=== PATIENT | female | born 1980 | race Caucasian/White ===

== ENCOUNTER 2016-11-05 23:44 | Emergency (ER) | payer OTHER, MEDICAID ==
[~2016-11-05] VITALS: Ht 160 cm; Wt 112.7 kg
[2016-11-05 23:52] VITALS: Ht 160 cm; Wt 112.7 kg
[2016-11-06] MEDS ORDERED: SOD CHLORIDE 0.9% 500 ML IV STA (00:07)
[2016-11-06] MEDS ORDERED: ALBUTEROL 0.083% (NEB) 2.5 MG/3 ML AMP NEB STA (00:16)
[2016-11-06] MEDS ORDERED: IPRATROPIUM (NEB) 0.5 MG/2.5 ML AMP NEB STA (00:16)
[2016-11-06 00:27] LABS: BASOPHIL # 0.1 10^3/ul (0.0-0.1); BASOPHILS % 0.5 % (0.0-2.0); EOSINOPHILS # 0.2 10^3/ul (0.0-0.5); EOSINOPHILS % 1.6 % (0.0-7.0); HEMATOCRIT 35.6 % (37.0-47.0); HEMOGLOBIN 12.6 g/dl (12.0-16.0); LYMPHOCYTES % 17.7 % (15.0-51.0); MEAN CORPUSCULAR HEMOGLOBIN 31.7 pg (29.0-33.0); MEAN CORPUSCULAR HGB CONC 35.4 g/dl (32.0-37.0); MEAN CORPUSCULAR VOLUME 89.4 fl (82.0-101.0); MEAN PLATELET VOLUME 9.2 fl (7.4-10.4); MONOCYTE # 0.7 10^3/ul (0.3-0.9); MONOCYTES % 6.3 % (0.0-11.0); NEUTROPHILS % 72.1 % (39.0-77.0); PLATELET COUNT 285 10^3/UL (140-415); RED BLOOD COUNT 3.98 10^6/ul (4.20-5.40); RED CELL DISTRIBUTION WIDTH 13.4 % (11.5-14.5); WHITE BLOOD COUNT 11.1 10^3/ul (4.8-10.8)
[2016-11-06] MEDS ORDERED: LORAZEPAM 2 MG INJ IV ONE (00:30)
[2016-11-06 00:51] LABS: ALANINE AMINOTRANSFERASE 40 IU/L (13-69); ALBUMIN 3.9 g/dl (3.3-4.9); ALKALINE PHOSPHATASE 74 IU/L (42-121); ANION GAP 18 (8-16); ASPARTATE AMINO TRANSFERASE 23 IU/L (15-46); BILIRUBIN,INDIRECT 0.2 mg/dl (0-1.1); BILIRUBIN,TOTAL 0.2 mg/dl (0.2-1.3); BLOOD UREA NITROGEN 8 mg/dl (7-20); CALCIUM 10.2 mg/dl (8.4-10.2); CARBON DIOXIDE 23 mmol/L (21-31); CHLORIDE 103 mmol/L (97-110); CREATININE 0.59 mg/dl (0.44-1.00); GLUCOSE 92 mg/dl (70-220); POTASSIUM 3.7 mmol/L (3.5-5.1); SODIUM 140 mmol/L (135-144); TOTAL PROTEIN 6.9 g/dl (6.1-8.1)
[2016-11-06 00:53] LABS: INR 0.91; PROTIME 12.2 Sec (12.2-14.2)
[2016-11-06 00:54] LABS: PARTIAL THROMBOPLASTIN TIME 25.8 Sec (25.0-35.0)
[2016-11-06 01:04] LABS: B-TYPE NATRIURETIC PEPTIDE < 11 PG/ML (0-125); TROPONIN-I < 0.012 ng/ml (0.00-0.12)
[2016-11-06 01:35] LABS: ADD UMIC YES; UR ASCORBIC ACID NEGATIVE (NEGATIVE); UR BACTERIA FEW /HPF (NONE SEEN); UR BILIRUBIN (Dip) NEGATIVE (NEGATIVE); UR BLOOD (Dip) 1+ mg/dL (NEGATIVE); UR CLARITY CLEAR (CLEAR); UR COLOR STRAW (YELLOW); UR GLUCOSE (Dip) NEGATIVE (NEGATIVE); UR KETONES (Dip) NEGATIVE (NEGATIVE); UR LEUKOCYTE ESTERASE (Dip) TRACE Leu/ul (NEGATIVE); UR NITRITE (Dip) NEGATIVE (NEGATIVE); UR RBC 1 /HPF (0-5); UR SPECIFIC GRAVITY (Dip) 1.001 (1.003-1.030); UR SQUAMOUS EPITHELIAL CELL FEW /HPF (FEW); UR TOTAL PROTEIN (Dip) NEGATIVE (NEGATIVE); UR UROBILINOGEN (Dip) NEGATIVE (NEGATIVE)
[2016-11-06] MEDS ORDERED: PREN1TAB12 PO (02:20)
[2016-11-06] MEDS ORDERED: LABE200T25 PO (02:20)
[2016-11-06] MEDS ORDERED: CALC-516 PO (02:20)
[2016-11-06] MEDS ORDERED: FER325 PO (02:20)
[2016-11-06] MEDS ORDERED: ALBU18HF INHALATION (02:40)
--- NOTE | 2016-11-06 02:40 | ERD ---
ER Documentation Chief Complaint Date/Time DATE: 11/06/16 TIME: 02:39 Chief Complaint LFT SD CP RADIATING TO LT SHOULDER TONIGHT. 28 WEEKS +SOB HPI 28-year-old female here with left-sided chest pain rating to her shoulders 9. She also complains of shortness breath for the past 3 days. Mild cough. No fevers no chills. No nausea no vomiting. No other current complaints. No abdominal pain. No vaginal bleeding. ROS All systems reviewed and are negative except as per history of present illness. Medications Home Meds Reported Medications Vit No.126/Iron/FA (Classic Tablet) 1 Each Tablet, 1 EACH PO, TAB 11/06/16 Labetalol Hcl* (Labetalol Hcl*) 200 Mg Tablet, 200 MG PO BID, TAB 11/06/16 Ferrous Sulfate* (Ferrous Sulfate*) 325 Mg Tabec, 325 MG PO TID, TAB 11/06/16 Calcium Carbonate/Vitamin D3 (OYSTER SHELL CALCIUM TABLET) 1 Each Tablet, 1 EACH PO, TAB 11/06/16 Allergies Allergies: Coded Allergies: No Known Allergy (Unverified , 11/05/16) PMhx/Soc Medical and Surgical Hx: pt denies Surgical Hx Hx Cardiac Disorders: Yes (HTN) Hx Alcohol Use: No Hx Substance Use: No Hx Tobacco Use: No Smoking Status: Never smoker Physical Exam Vitals Vital Signs Date Time Temp Pulse Resp B/P Pulse Ox O2 Delivery O2 Flow Rate FiO2 11/06/16 00:54 2 11/06/16 00:40 80 12 99 21 11/05/16 23:52 97.8 86 22 146/83 100 Physical Exam Const: [] Head: Atraumatic Eyes: Normal Conjunctiva ENT: Normal External Ears, Nose and Mouth. Neck: Full range of motion..~ No meningismus. Resp: Scattered wheezing. Good air entry Cardio: Regular rate and rhythm, no murmurs Abd: Soft, non tender, non distended. Normal bowel sounds Skin: No petechiae or rashes Back: No midline or flank tenderness Ext: No cyanosis, or edema Neur: Awake and alert Psych: Normal Mood and Affect Result Diagram: 11/06/16 0010 11/06/16 0010 Results 24 hrs Laboratory Tests Test 11/06/16 00:10 11/06/16 00:15 White Blood Count 11.110^3/ul Red Blood Count 3.9810^6/ul Hemoglobin 12.6g/dl Hematocrit 35.6% Mean Corpuscular Volume 89.4fl Mean Corpuscular Hemoglobin 31.7pg Mean Corpuscular Hemoglobin Concent 35.4g/dl Red Cell Distribution Width 13.4% Platelet Count 56331^3/UL Mean Platelet Volume 9.2fl Neutrophils % 72.1% Lymphocytes % 17.7% Monocytes % 6.3% Eosinophils % 1.6% Basophils % 0.5% Nucleated Red Blood Cells % 0.0/100WBC Neutrophils # (Manual) 810^3/ul Lymphocytes # 2.010^3/ul Monocytes # 0.710^3/ul Eosinophils # 0.210^3/ul Basophils # 0.110^3/ul Nucleated Red Blood Cells # 0.010^3/ul Prothrombin Time 12.2Sec Prothrombin Time Ratio 1.0 INR International Normalized Ratio 0.91 Activated Partial Thromboplast Time 25.8Sec Sodium Level 140mmol/L Potassium Level 3.7mmol/L Chloride Level 103mmol/L Carbon Dioxide Level 23mmol/L Anion Gap 18 Blood Urea Nitrogen 8mg/dl Creatinine 0.59mg/dl Glucose Level 92mg/dl Calcium Level 10.2mg/dl Total Bilirubin 0.2mg/dl Direct Bilirubin 0.00mg/dl Indirect Bilirubin 0.2mg/dl Aspartate Amino Transf (AST/SGOT) 23IU/L Alanine Aminotransferase (ALT/SGPT) 40IU/L Alkaline Phosphatase 74IU/L Troponin I < 0.012ng/ml B-Type Natriuretic Peptide < 11PG/ML Total Protein 6.9g/dl Albumin 3.9g/dl Globulin 3.00g/dl Albumin/Globulin Ratio 1.30 Urine Color STRAW Urine Clarity CLEAR Urine pH 7.0 Urine Specific [place] 1.001 Urine Ketones NEGATIVEmg/dL Urine Nitrite NEGATIVEmg/dL Urine Bilirubin NEGATIVEmg/dL Urine Urobilinogen NEGATIVEmg/dL Urine Leukocyte Esterase TRACELeu/ul Urine Microscopic RBC 1/HPF Urine Microscopic WBC 0/HPF Urine Squamous Epithelial Cells FEW/HPF Urine Bacteria FEW/HPF Urine Hemoglobin 1+mg/dL Urine Glucose NEGATIVEmg/dL Urine Total Protein NEGATIVEmg/dl Current Medications Medications (Trade) Dose Ordered Sig/Gera Route PRN Reason Start Time Stop Time Status Last Admin Dose Admin Sodium Chloride (NS) 500 ml @ 500 mls/hr Q1H STAT IV 11/06/16 00:07 11/06/16 01:06 DC 11/06/16 00:27 Lorazepam (Ativan) 1 mg ONCE ONCE IV 11/06/16 00:30 11/06/16 00:30 DC Albuterol (Proventil 0.083% (Neb)) 5 mg ONCE STAT NEB 11/06/16 00:16 11/06/16 00:17 DC 11/06/16 00:38 Ipratropium [place] (Atrovent 0.02% (Neb)) 0.5 mg ONCE STAT NEB 11/06/16 00:16 11/06/16 00:17 DC 11/06/16 00:38 Procedures/MDM EKG: Rate/Rhythm: [Normal Sinus Rhythm] QRS, ST, T-waves: [No changes consistent w/ acute ischemia] Impression: [No evidence of ischemia or arrhythmia] Patient's respiratory status has stabilized while in the department and is appropriate for outpatient work up. Exam and work up not consistent w/ impending respiratory failure or cardiovascular collapse. Departure Diagnosis: Primary Impression: Asthma Asthma severity: unspecified severity Asthma complication type: uncomplicated Qualified Code: J45.909 - Uncomplicated asthma, unspecified asthma severity Condition: Stable REYMUNDO CHANDRA Nov 06, 2016 02:40
[2016-11-06 02:57] VITALS: BP 120/68; PULSE 82; RESP 16
== END 2016-11-06 02:58 | disposition home or self-care (01) ==
LOC: E/R 23:44
DX: O99.513 Diseases of the respiratory system complicating pregnancy, third trimester (principal); J45.901 Unspecified asthma with (acute) exacerbation; R06.02 Shortness of breath; R40.2142 Coma scale, eyes open, spontaneous, at arrival to emergency department; R40.2252 Coma scale, best verbal response, oriented, at arrival to emergency department; R40.2362 Coma scale, best motor response, obeys commands, at arrival to emergency department; O10.013 Pre-existing essential hypertension complicating pregnancy, third trimester; Z3A.28 28 weeks gestation of pregnancy
CPT/HCPCS: 36415; 80053; 81001; 83880; 84484; 85025; 85610; 85730; 93005; 94664; 99284; J7040

== ENCOUNTER 2016-12-09 16:13 | Emergency (ER) | payer MEDICAID, OTHER ==
[~2016-12-09] VITALS: Ht 160 cm; Wt 112.5 kg
[~2016-12-09 16:13] MED LIST: ALBU18HF INHALATION; CALC-516 PO; FER325 PO; LABE200T25 PO; PREN1TAB12 PO
[2016-12-09 16:15] VITALS: Ht 160 cm; Wt 112.5 kg
[2016-12-09] MEDS ORDERED: FLUT9.9S NASAL (16:47)
[2016-12-09] MEDS ORDERED: LABETALOL 200 MG TAB PO ONE (17:00)
[2016-12-09 17:27] VITALS: BP 136/83; PULSE 91; RESP 17
--- NOTE | 2016-12-09 17:44 | ERD ---
ER Documentation Chief Complaint Date/Time DATE: 12/09/16 TIME: 17:42 Chief Complaint right eye itciness ( allergy) 33 weeks HPI Patient is a 28-year-old female with hypertension who presents with a "allergy" . She says that she cannot breathe through her nose and that her throat hurts and she swallows. She has not seen her OB yet for this issue. She did not go to OB prior to coming to the emergency department. She is 33 weeks . She is taking labetalol and loratadine currently she does have elevated blood pressure but she did not take her labetalol today. She says the loratadine is not helping with this nasal issue. Says that her OB doctor is Dr. Viera. ROS All systems reviewed and are negative except as per history of present illness. Medications Home Meds Active Scripts Fluticasone Propionate (Flonase Allergy Relief) 9.9 Ml [place].susp, 1 SPRAY NASAL BID, #1 BOTTLE TO EACH NOSTRIL Prov:DOMONIQUE COLBY MD 12/09/16 Albuterol Sulfate* (Ventolin HFA*) 18 Gm Hfa.aer.ad, 2 PUFF INHALATION Q4H, #1 INHALER Prov:REYMUNDO CHANDRA 11/06/16 Reported Medications Vit No.126/Iron/FA (Classic Tablet) 1 Each Tablet, 1 EACH PO, TAB 11/06/16 Labetalol Hcl* (Labetalol Hcl*) 200 Mg Tablet, 200 MG PO BID, TAB 11/06/16 Ferrous Sulfate* (Ferrous Sulfate*) 325 Mg Tabec, 325 MG PO TID, TAB 11/06/16 Calcium Carbonate/Vitamin D3 (OYSTER SHELL CALCIUM TABLET) 1 Each Tablet, 1 EACH PO, TAB 11/06/16 Allergies Allergies: Coded Allergies: No Known Allergy (Unverified , 11/05/16) PMhx/Soc Medical and Surgical Hx: pt denies Medical Hx Hx Cardiac Disorders: Yes (HTN) Hx Alcohol Use: No Hx Substance Use: No Hx Tobacco Use: No Smoking Status: Never smoker FmHx Family History: diabetes Physical Exam Vitals Vital Signs Date Time Temp Pulse Resp B/P Pulse Ox O2 Delivery O2 Flow Rate FiO2 12/09/16 17:27 91 17 136/83 98 Room Air 12/09/16 17:16 83 17 147/88 98 Room Air 12/09/16 16:15 98.1 92 18 139/89 98 Physical Exam Const: No acute distress Head: Atraumatic Eyes: Normal Conjunctiva ENT: Normal External Ears, Nose and Mouth. Neck: Full range of motion..~ No meningismus. Resp: Clear to auscultation bilaterally Cardio: Regular rate and rhythm, no murmurs Abd: Soft, abdomen at 33 weeks Skin: No petechiae or rashes Back: No midline or flank tenderness Ext: No cyanosis, or edema Neur: Awake and alert Psych: Normal Mood and Affect Results 24 hrs Current Medications Medications (Trade) Dose Ordered Sig/Gera Route PRN Reason Start Time Stop Time Status Last Admin Dose Admin Labetalol HCl (Normodyne) 200 mg ONCE ONCE PO 12/09/16 17:00 12/09/16 17:01 DC 12/09/16 17:24 Procedures/MDM Patient is a 36-year-old female presents with what appears to be nasal allergies. The patient will likely benefit from Flonase. The patient has elevated blood pressure of 170/110 currently and even though she has hypertension and did not take her labetalol today there is a concern for possible preeclampsia given her 33 weeks . The patient will need to be sent directly to the OB triage area for further evaluation and monitoring. She was given her usual dose of labetalol 200 mg by mouth in the ER and repeat blood pressure was improved. The patient will be discharged in stable condition will be sent directly to OB. Departure Diagnosis: Primary Impression: Hypertension affecting Trimester: third trimester Qualified Code: O16.3 - Hypertension affecting in third trimester Additional Impression: Seasonal allergies Chronicity: acute Allergic rhinitis trigger: unspecified Qualified Code: J30.2 - Acute seasonal allergic rhinitis, unspecified trigger Condition: Fair Patient Instructions: Causes of Nasal Allergies, High Blood Pressure ( Hypertension) Additional Instructions: Go directly to OB Triage for further evaluation. DOMONIQUE COLBY MD Dec 09, 2016 17:44
== END 2016-12-09 17:37 | disposition home or self-care (01) ==
LOC: E/R 16:13
DX: O16.3 Unspecified maternal hypertension, third trimester (principal); J30.2 Other seasonal allergic rhinitis; Z3A.33 33 weeks gestation of pregnancy
CPT/HCPCS: Z7502; Z7610; 99283

== ENCOUNTER 2016-12-09 17:43 | Outpatient (CLI) | payer MEDICAID, OTHER ==
[~2016-12-09 17:43] MED LIST changes: +FLUT9.9S NASAL
[2016-12-09 19:19] LABS: BASOPHILS % 0.3 % (0.0-2.0); EOSINOPHILS # 0.2 10^3/ul (0.0-0.5); EOSINOPHILS % 1.8 % (0.0-7.0); HEMATOCRIT 34.4 % (37.0-47.0); HEMOGLOBIN 12.2 g/dl (12.0-16.0); LYMPHOCYTES # 1.2 10^3/ul (0.8-2.9); LYMPHOCYTES % 12.4 % (15.0-51.0); MEAN CORPUSCULAR HEMOGLOBIN 32.4 pg (29.0-33.0); MEAN CORPUSCULAR HGB CONC 35.5 g/dl (32.0-37.0); MEAN CORPUSCULAR VOLUME 91.5 fl (82.0-101.0); MEAN PLATELET VOLUME 9.4 fl (7.4-10.4); MONOCYTE # 0.7 10^3/ul (0.3-0.9); MONOCYTES % 7.4 % (0.0-11.0); NEUTROPHIL # 7.4 10^3/ul (1.6-7.5); PLATELET COUNT 261 10^3/UL (140-415); RED BLOOD COUNT 3.76 10^6/ul (4.20-5.40); RED CELL DISTRIBUTION WIDTH 13.3 % (11.5-14.5); WHITE BLOOD COUNT 9.6 10^3/ul (4.8-10.8)
[2016-12-09 19:33] LABS: ADD UMIC YES; UR ASCORBIC ACID NEGATIVE (NEGATIVE); UR BACTERIA MODERATE /HPF (NONE SEEN); UR BILIRUBIN (Dip) NEGATIVE (NEGATIVE); UR BLOOD (Dip) NEGATIVE (NEGATIVE); UR CLARITY SLIGHTLY CLOUDY (CLEAR); UR COLOR YELLOW (YELLOW); UR GLUCOSE (Dip) NEGATIVE (NEGATIVE); UR KETONES (Dip) NEGATIVE (NEGATIVE); UR LEUKOCYTE ESTERASE (Dip) 1+ Leu/ul (NEGATIVE); UR MUCUS FEW /HPF (NONE SEEN); UR NITRITE (Dip) NEGATIVE (NEGATIVE); UR RBC 1 /HPF (0-5); UR SPECIFIC GRAVITY (Dip) 1.013 (1.003-1.030); UR SQUAMOUS EPITHELIAL CELL FEW /HPF (FEW); UR TOTAL PROTEIN (Dip) NEGATIVE (NEGATIVE); UR UROBILINOGEN (Dip) NEGATIVE (NEGATIVE)
[2016-12-09 19:36] LABS: INR 0.97; PARTIAL THROMBOPLASTIN TIME 25.8 Sec (25.0-35.0); PROTIME 12.9 Sec (12.2-14.2)
[2016-12-09 19:37] LABS: ALBUMIN 3.5 g/dl (3.3-4.9); ALBUMIN/GLOBULIN RATIO 1.12; BILIRUBIN,INDIRECT 0.3 mg/dl (0-1.1); BILIRUBIN,TOTAL 0.3 mg/dl (0.2-1.3); CALCIUM 9.3 mg/dl (8.4-10.2); CREATININE 0.57 mg/dl (0.44-1.00); POTASSIUM 3.7 mmol/L (3.5-5.1); TOTAL PROTEIN 6.6 g/dl (6.1-8.1)
[2016-12-09 19:44] LABS: FIBRIN SPLIT PRODUCT <10 ug/ml (<10)
--- NOTE | 2016-12-09 19:53 | RADRPT ---
PROCEDURE: Obstetrical ultrasound for biophysical profile CLINICAL INDICATION: Biophysical profile. . TECHNIQUE: Obstetrical ultrasound of the uterus for biophysical profile. Transabdominal views are obtained. COMPARISON: 12/07/2016 FINDINGS: Single intrauterine gestation. Presentation: Cephalic. Placenta: Fundal No evidence of placental abruption. No evidence of placenta previa. breathing movement = 2/2 tone = 2/2 motion = 2/2 CHANDLER = 2/2 CHANDLER = 17 cm heart rate: 135 beats per minute IMPRESSION: Single intrauterine gestation. Biophysical profile 10/23 RPTAT: AADD .Geoffrey Sanchez MD, MD Date Time Electronically viewed and signed by .Geoffrey Sanchez MD, on 12/09/2016 19:53 .B/
--- NOTE | 2016-12-09 22:14 | PN ---
Triage Information Date/Time Dec 09, 2016. Reason for visit: Chronic hypertension. Upper respiratory infection. Weeks of Gestation 33w 1d /Para 2/1 Diabetes: none Hypertention: essential Additional information PMHx: Chronic hypertension. Mild asthma. PSHx: none. All: shrimp. Objective T=98.4 BP 140/80 (after taking her BP meds it was 134/75). Heart Rate: 130's Heart Rate Comments Accels to 180 bpm. No decels. Contractions: None Exam Deferred. Results/Medications Result Diagram: 12/09/16191212/09/161912 Results 24 hrs Laboratory Tests Test 12/09/16 19:13 12/09/16 19:15 White Blood Count 9.6 Red Blood Count 3.76 L Hemoglobin 12.2 Hematocrit 34.4 L Mean Corpuscular Volume 91.5 Mean Corpuscular Hemoglobin 32.4 Mean Corpuscular Hemoglobin Concent 35.5 Red Cell Distribution Width 13.3 Platelet Count 261 Mean Platelet Volume 9.4 Neutrophils % 77.0 Lymphocytes % 12.4 L Monocytes % 7.4 Eosinophils % 1.8 Basophils % 0.3 Nucleated Red Blood Cells % 0.0 Neutrophils # 7.4 Lymphocytes # 1.2 Monocytes # 0.7 Eosinophils # 0.2 Basophils # 0.0 Nucleated Red Blood Cells # 0.0 Prothrombin Time 12.9 Prothrombin Time Ratio 1.0 INR International Normalized Ratio 0.97 Activated Partial Thromboplast Time 25.8 Fibrinogen 507.0 H Plasma Fibrin Degradation Products <10 Sodium Level 138 Potassium Level 3.7 Chloride Level 109 Carbon Dioxide Level 24 Anion Gap 9 Blood Urea Nitrogen 8 Creatinine 0.57 Glucose Level 94 Uric Acid 5.0 Calcium Level 9.3 Total Bilirubin 0.3 Direct Bilirubin 0.00 Indirect Bilirubin 0.3 Aspartate Amino Transf (AST/SGOT) 28 Alanine Aminotransferase (ALT/SGPT) 49 Alkaline Phosphatase 76 Total Protein 6.6 Albumin 3.5 Globulin 3.10 Albumin/Globulin Ratio 1.12 Urine Color YELLOW Urine Clarity SLIGHTLY CLOUDY A Urine pH 7.0 Urine Specific [place] 1.013 Urine Ketones NEGATIVE Urine Nitrite NEGATIVE Urine Bilirubin NEGATIVE Urine Urobilinogen NEGATIVE Urine Leukocyte Esterase 1+ H Urine Microscopic RBC 1 Urine Microscopic WBC 2 Urine Squamous Epithelial Cells FEW Urine Bacteria MODERATE Urine Mucus FEW A Urine Hemoglobin NEGATIVE Urine Glucose NEGATIVE Urine Total Protein NEGATIVE Imaging Results BPP 10/23. CHANDLER 17 cm. VTX. Disposition: Discharge Assessment/Plan A: IUP at 33w 1d. URI. CHTN. P: Urine cx. Pt was given a fluticasone nasal spray in the ER. Pt already filled the rx. Instructed pt to stay hydrated and get lots of sleep and she should get better. May take Tylenol as needed, drink warm fluids to soothe a sore throat. Pt d/c'ed home. SHAWN KRAMER MD Dec 09, 2016 22:14
--- NOTE | 2016-12-09 22:52 | TRIAGE ---
OB Triage Datetime Report Generated by CPN: 12/09/2016 22:52 Datetime: 12/09/2016 21:53 Stage of : OB Triage Monitor Mode: External Pattern: Normal: <= 5 Contractions in 10 Minutes Resting Tone [place]: Relaxed Contraction Comments: no contractions at this time. Heart Rate FHR Baseline Rate: 120 Monitor Mode: External US Variability: Moderate 6-25 bpm Accelerations: 15X15 Decelerations: None Category: Category I Pain Assessment Pain Scale: 0 Pain Presence: None/Denies Pain Type: N/A Pain Relief Measures: Comfort Measures Datetime: 12/09/2016 21:17 Stage of : OB Triage Monitor Mode: External US Datetime: 12/09/2016 20:57 Stage of : OB Triage Labor Evaluation Frequency: X2 Monitor Mode: External Duration (sec)2399: 50-60 Quality: Mild Pattern: Normal: <= 5 Contractions in 10 Minutes Resting Tone [place]: Relaxed Contraction Comments: Pt does not feel any contractions. Heart Rate FHR Baseline Rate: 120 Monitor Mode: External US Variability: Moderate 6-25 bpm Accelerations: 15X15 Decelerations: None Category: Category I Pain Assessment Pain Scale: 0 Pain Presence: None/Denies Pain Type: N/A Pain Relief Measures: Comfort Measures Datetime: 12/09/2016 20:54 Stage of : OB Triage Monitor Mode: External Monitor Mode: External US Datetime: 12/09/2016 20:06 Stage of : OB Triage Monitor Mode: External Pattern: Normal: <= 5 Contractions in 10 Minutes Resting Tone [place]: Relaxed Contraction Comments: No contractions at this time. Heart Rate FHR Baseline Rate: 120 Monitor Mode: External US Variability: Moderate 6-25 bpm Accelerations: 15X15 Decelerations: None Category: Category I Pain Assessment Pain Scale: 0 Pain Presence: None/Denies Pain Type: N/A Pain Relief Measures: Comfort Measures Datetime: 12/09/2016 19:43 Monitor Mode: External Monitor Mode: External US Datetime: 12/09/2016 19:39 Stage of : OB Triage Datetime: 12/09/2016 19:15 Assessment Type: Triage Maternal Assessment Level of Consciousness: Fully Conscious DTR's/Clonus: DTRs 2+; No Clonus Headache: Denies Blurred Vision: No Respiratory Effort: Unlabored; Regular Rhythm; Equal Expansion Breath Sounds, Left: Clear and Equal Breath Sounds, Right: Clear and Equal Nausea/Vomiting: Denies RUQ Epigastric Pain: Denies Lower Extremities Edema: None Degree: None Upper Extremities Edema: None Degree: None Facial Edema: None Fall Risk Assessment History of Falling: (0) No Secondary Diagnosis: (0) No Ambulatory Aid: (0) Bedrest/Nurse Assist IV Therapy: (0) No Gait: (0) Normal/Bedrest/Immobile Mental Status: (0) Oriented to Own Ability Fall Score: 0 Fall Risk Score Definition: No Risk: No action required Datetime: 12/09/2016 19:13 Stage of : OB Triage Maternal Assessment Level of Consciousness: Fully Conscious DTR's/Clonus: DTRs 1+ Headache: Denies Breath Sounds, Left: Clear and Equal Breath Sounds, Right: Clear and Equal Nausea/Vomiting: Denies RUQ Epigastric Pain: Denies Monitor Mode: External Resting Tone [place]: Relaxed Heart Rate FHR Baseline Rate: 135 Monitor Mode: External US Variability: Moderate 6-25 bpm Accelerations: 15X15 Decelerations: None Category: Category I Pain Assessment Pain Scale: 0 Pain Presence: None/Denies Pain Type: N/A Pain Goal: 0 Vaginal Exam Membrane Status: Intact Datetime: 12/09/2016 18:13 Maternal Assessment Level of Consciousness: Fully Conscious DTR's/Clonus: DTRs 1+ Headache: Denies Blurred Vision: No Respiratory Effort: Unlabored Breath Sounds, Left: Clear and Equal Breath Sounds, Right: Clear and Equal Nausea/Vomiting: Denies RUQ Epigastric Pain: Denies Facial Edema: 1+ Monitor Mode: External Resting Tone [place]: Relaxed Monitor Mode: External US Variability: Moderate 6-25 bpm Accelerations: 15X15 Decelerations: None Category: Category I Pain Presence: None/Denies Pain Type: N/A Vaginal Exam Membrane Status: Intact Datetime: 12/09/2016 17:50 Time of Arrival: 12/09/2016 17:40 EGA: 33.1 Arrived By: Wheelchair Arrived From: Emergency Dept Chief Complaint: Allergies Movement: Present Contractions: Denies/Absent Rupture of Membranes: Denies Vaginal Bleeding: None Vaginal Discharge: Denies Recent Sexual Intercouse: Denies Abdominal Trauma: Not Applicable Patient Complaints: None Time Provider Notified: 12/09/2016 18:30 Provider Notified: TREVIN Initial Plan: EFM, VS Datetime: 11/10/2016 00:48 Stage of : OB Triage Datetime: 11/10/2016 00:29 Monitor Mode: External US Datetime: 11/10/2016 00:04 Stage of : OB Triage Monitor Mode: External Monitor Mode: External US Datetime: 11/09/2016 23:55 Stage of : OB Triage Datetime: 11/09/2016 23:39 Stage of : OB Triage Labor Evaluation Frequency: 0 Monitor Mode: External Resting Tone [place]: Relaxed Heart Rate FHR Baseline Rate: 140 Monitor Mode: External US Variability: Moderate 6-25 bpm Accelerations: 15X15 Decelerations: Variable Comments: APPROPRIATE FOR GA Datetime: 11/09/2016 22:42 Fall Score: 15 Fall Risk Score Definition: No Risk: No action required Datetime: 11/09/2016 22:39 EGA: 28.6 Datetime: 11/09/2016 22:24 Stage of : OB Triage Monitor Mode: External Contraction Comments: APPLIED Monitor Mode: External US Comments: APPLIED
== END 2016-12-09 22:00 | disposition home or self-care (01) ==
LOC: L-D 17:43 → OBT 17:43
PROVIDERS: ATTEND Obstetrics & Gynecology
DX: O10.913 Unspecified pre-existing hypertension complicating pregnancy, third trimester (principal); O99.513 Diseases of the respiratory system complicating pregnancy, third trimester; Z3A.33 33 weeks gestation of pregnancy; J45.909 Unspecified asthma, uncomplicated
CPT/HCPCS: 76818; 80053; 81001; 84560; 85025; 85362; 85384; 85610; 85730; 87086; G0463

== ENCOUNTER 2017-01-15 10:00 | Inpatient (IN) | payer MEDICAID ==
[~2017-01-15] VITALS: Ht 160 cm; Wt 117.2 kg
[2017-01-16 10:44] VITALS: Ht 160 cm; Wt 117.2 kg
[2017-01-16 10:46] VITALS: BP 142/87; PULSE 84; RESP 18
[2017-01-16] MEDS ORDERED: MINERAL OIL LIGHT 10 ML VIAL TOP PRN (11:00)
[2017-01-16] MEDS ORDERED: CARBOPROST 250 MCG INJ IM PRN (11:00)
[2017-01-16] MEDS ORDERED: LIDOCAINE 1% (MPF) 30 ML INJ INJ PRN ×2 (11:00→22:00)
[2017-01-16] MEDS ORDERED: OXYTOCIN 30 UNITS/LR 500 ML IV PRN (11:00)
[2017-01-16] MEDS ORDERED: MISOPROSTOL 200 MCG TAB PR PRN (11:00)
[2017-01-16] MEDS ORDERED: IBUPROFEN 600 MG TAB PO PRN ×2 (11:00→22:00)
[2017-01-16] MEDS ORDERED: METHYLERGONOVINE 0.2 MG INJ IM PRN (11:00)
[2017-01-16] MEDS: LACTATED RINGER'S 1,000 ML IV SCH ×2 (11:14→19:52)
[2017-01-16] MEDS ORDERED: LACTATED RINGER'S 1,000 ML IV PRN (12:00)
[2017-01-16] MEDS ORDERED: DINOPROSTONE 10 MG VAG SUPP VAG PRN (12:30)
--- NOTE | 2017-01-16 13:24 | RADRPT ---
PROCEDURE: US OB. CLINICAL INDICATION: Size and dates , PIH TECHNIQUE: Multiple sonographic images of the pelvis and gravid uterus were obtained. The images were reviewed on a PACS workstation. COMPARISON: No prior studies are available for comparison. FINDINGS: There is a single viable intrauterine gestation. Cardiac activity is present with 130 beats per min shahla. There is a vertex presentation. The placenta is posterior. There is no evidence for an abruption or placenta previa. Measurements were made in order to determine age. The results are as follows: BPD =9.5 cm HC =33.6 cm AC =35.6 cm FL =6.8 cm Estimated gestational age of approximately 38 weeks and 0 days based on ultrasound measurements. Clinical age: 38 weeks and 3 days. The estimated date of delivery is 01/30/17, based on ultrasound measurements. The EFW = 3464 g, 63.1%, based on LMP age. RPTAT: AA IMPRESSION: Single viable intrauterine gestation of approximately 38 weeks and 0 days based on ultrasound measu rements. .Esequiel Vaughan MD, Date Time Electronically viewed and signed by .Esequiel Vaughan MD, MD on 01/16/2017 13:24 .S/
--- NOTE | 2017-01-16 18:11 | HP ---
Date/Time of Note Date/Time of Note DATE: 01/16/17 TIME: 18:06 OB - History Hx of Present Free Text/Dictation Admitted for elective induction of labor at 38 weeks because of chronic hypertension Last Menstrual Period: Apr 22, 2016 Estimated Due Date: Jan 27, 2017 : 2 Para: 1 Care: Good Care Ultrasounds: Normal mid trimester US Obstetrical Complications: None Medical Complications: Other (Chronic hypertension) Past Family/Social History * Past Medical, Surgical, Family and Obstetric Histories reviewed from chart. Blood Type: B+ Rubella: immune RPR/VDRL: Negative GBS Status: Negative HBsAG: Negative OB Admission Exam Vital Signs Vital Signs Vital Signs Date Time Temp Pulse Resp B/P Pulse Ox O2 Delivery O2 Flow Rate FiO2 01/16/17 10:46 98.2 84 18 142/87 96 Room Air Physical Exam HEENT: WNL Heart: Rhythm Normal Lungs: Clear, Equal Abdomen: WNL Extremities: Normal Reflexes: Normal Cervical Dilatation: None Effacement: 0% Station: -3 Membranes: Intact Heart Rate: 140's Accelerations: Accelerations Present Decelerations: No Decelerations Varibility: Marked Contractions on Admission: None Last 72 hours Lab Results CBC & BMP 01/16/17 11:55 01/16/17 12:55 Liver Function Test 01/16/17 12:55 Alanine Aminotransferase (ALT/SGPT) 41 Albumin 3.2 L Alkaline Phosphatase 116 Aspartate Amino Transf (AST/SGOT) 33 Direct Bilirubin 0.00 Total Protein 6.2 OB Assessment/Plan Other Assessment: 38 weeks and 3 days gestation Chronic hypertension Other plan: Induce labor with Cervidil KRISTY EMERSON MD Jan 16, 2017 18:11
[2017-01-16] MEDS: LABETALOL 200 MG TAB PO SCH (20:58)
[2017-01-16] MEDS ORDERED: BUTORPHANOL 2 MG INJ IV PRN (22:00)
[2017-01-16] MEDS ORDERED: OXYTOCIN 30 UNITS/LR 500 ML IV SCH ×2 (22:00)
[2017-01-16] MEDS ORDERED: NALOXONE (0.4 MG/ML) INJ IV PRN (23:00)
[2017-01-16] MEDS ORDERED: DIPHENHYDRAMINE 50 MG INJ IV PRN (23:00)
[2017-01-16] MEDS ORDERED: HYDROmorphONE 0.5 MG/0.5 ML SYG IV PRN ×2 (23:00)
[2017-01-16] MEDS ORDERED: ONDANSETRON 4 MG INJ IV PRN (23:00)
[2017-01-17] MEDS: LACTATED RINGER'S 1,000 ML IV SCH ×3 (02:31→19:55)
[2017-01-17] MEDS: LABETALOL 200 MG TAB PO SCH ×2 (09:05→21:08)
[2017-01-17] MEDS ORDERED: DINOPROSTONE 10 MG VAG SUPP VAG ONE (15:00)
--- NOTE | 2017-01-17 17:19 | PN ---
Date/Time of Note Date/Time of Note DATE: 01/17/17 TIME: 17:18 OB Subjective Subjective Subjective Admitted for induction of labor because of chronic hypertension at 38 weeks OB Objective Objective Objective Vital signs are stable General physical exam is unchanged Cervix still is long and 1 cm OB Assessment/Plan Reason for admission: induction of labor Other Assessment: The 8+ weeks gestation Hypertension Other plan: Continue with Cervidil induction KRISTY EMERSON MD Jan 17, 2017 17:19
[2017-01-18] MEDS: LACTATED RINGER'S 1,000 ML IV SCH ×3 (05:12→19:52)
[2017-01-18] MEDS: LABETALOL 200 MG TAB PO SCH ×2 (09:15→21:08)
--- NOTE | 2017-01-18 14:08 | PN ---
Date/Time of Note Date/Time of Note DATE: 01/18/17 TIME: 14:06 OB Subjective Subjective Subjective No complaint of uterine contractions OB Objective Objective Objective Cervix is 30% / 2 cm open/presenting part is vertex at -3 station Membranes were ruptured fluid appeared clear We will start on Pitocin augmentation of labor OB Assessment/Plan Reason for admission: induction of labor Other Assessment: Chronic hypertension 38 weeks and 3 days gestation Other plan: We will augment labor with Pitocin KRISTY EMERSON MD Jan 18, 2017 14:08
[2017-01-18] MEDS ORDERED: NALOXONE (0.4 MG/ML) INJ IV PRN (18:30)
[2017-01-18] MEDS ORDERED: FENTAnyl 2MCG/ML-ROPIV 0.2% 100 ML BAG EPI SCH (18:30)
[2017-01-18] MEDS: FENTAnyl 2MCG/ML-ROPIV 0.2% 100 ML BAG EPI SCH (19:52)
[2017-01-18] MEDS ORDERED: AMPICILLIN 2 GM/NS (PMX) 100 ML ONE (23:41)
[2017-01-18] MEDS: ACETAMINOPHEN 500 MG TAB PO PRN (23:52)
[2017-01-19] VITALS (7 sets, daily range): BP systolic 137–162; BP diastolic 82–101; PULSE 87–97; RESP 16–18
[2017-01-19] MEDS ORDERED: AMPICILLIN 2 GM/NS (PMX) 100 ML IV ONE
[2017-01-19] MEDS: AMPICILLIN 1 GM/NS (PMX) 50 ML IV SCH ×3 (04:16→12:20)
[2017-01-19] MEDS: FENTAnyl 2MCG/ML-ROPIV 0.2% 100 ML BAG EPI SCH ×2 (05:55→11:58)
[2017-01-19] MEDS: LACTATED RINGER'S 1,000 ML IV SCH ×3 (05:56→19:36)
[2017-01-19] MEDS: ACETAMINOPHEN 500 MG TAB PO PRN (08:24)
[2017-01-19] MEDS ORDERED: GENTAMICIN 120 MG/NS (PMX) 100 ML IVPB SCH (08:30)
[2017-01-19] MEDS ORDERED: CEFAZOLIN 2 GM/50 ML (PMX) 50 ML IVPB ONE (08:30)
[2017-01-19] MEDS: LABETALOL 200 MG TAB PO SCH ×2 (08:44→19:58)
[2017-01-19] MEDS ORDERED: FENTAnyl 50 MCG/ML VIAL ONE (13:07)
[2017-01-19] MEDS ORDERED: CLINDAMYCIN 900 MG/D5W (PMX) 50 ML IVPB STA (13:21)
[2017-01-19] MEDS ORDERED: CLINDAMYCIN 900 MG/D5W (PMX) 50 ML IVPB ONE (13:24)
[2017-01-19] MEDS ORDERED: SODIUM BICARBONATE (IV ADD) 50 ML ONE (13:29)
[2017-01-19] MEDS ORDERED: LIDOCAINE 2%/EPI 30 ML INJ ONE (13:29)
[2017-01-19] MEDS ORDERED: DEXAMETHASONE 4 MG/ML 1 ML INJ ONE (13:30)
[2017-01-19] MEDS ORDERED: ONDANSETRON 4 MG INJ ONE (13:32)
[2017-01-19] MEDS ORDERED: morphine SULFATE/PF (10 MG/10 ML) INJ ONE (14:05)
--- NOTE | 2017-01-19 14:10 | QN ---
Documentation Comment Patient progress her cervical rotation to 50% on 4 cm with presenting part at - 3 station Regardless of Pitocin augmentation of labor epidural anesthesia and adequate contractions patient did not have any progress of cervical dilatation beyond 4 cm for. Extending over 9 hours Meanwhile amniotic fluid stained with meconium and patient developed temperature IV antibiotics after fever workup started Situation was entertained with the patient and agreed to have a primary section as mode of delivery Patient had good awareness of nature and complications of C/S procedure including but but limited to infection and hemorrhage and agreed to undergo C/S. KRISTY EMERSON MD Jan 19, 2017 14:10
--- NOTE | 2017-01-19 14:14 | OPR ---
Operative Report Planned Procedure Procedure date Jan 19, 2017 Procedure(s) Primary section Performed by see signature line Assisting provider: ROCIO COLEMAN MD Anesthesiologist: KITTY MCELROY Pre-procedure diagnosis Term gestation Arrest of dilatation and descent Hypertension Possible amnionitis Anesthesia Type: epidural Procedure Description Under satisfactory anaesthesia a Pfannenstiel incision was made two fingerbreadth above and parallel to the symphysis of pubis. Incision was extended laterally to the border of the Recti muscles on either sides. Incision was carried down with sharp and blunt dissection until fascia was reached. Anterior Recti muscle fascia was incised in mid portion and incision extended laterally to the border of skin incision. Fascia was mobilized from muscle superiorly and Recti muscles were from midline using sharp and blunt dissection. Peritoneum was visualized; Avoiding bowel and bladder it was incised . Incision was extended superiorly and inferiorly. Bladder blade was placed. Posterior peritoneum covering the lower segment of the uterus and lower segment of the uterus were incised. Incision was extended laterally to the border of Round Lig. on either sides and baby was delivered from OP. position . Amniotic fluid appeared clear. Cord blood was obtained and cord had 3 vessels . Placenta was delivered spontaneously and appeared intact and complete. Intrauterine cavity was rubbed with a laparotomy sponge. Uterine incision was closed in 2 layers using running stitches of No1 Monocryl. Hemostasis appeared secure. Ovaries and Fallopian tubes were within normal limits. Announcing needle, lap sponge and instrument count to be correct abdomen was closed in layers as follows: Peritoneum and Recti muscles with running stitches of 20 Vicryl. Fascia with running stitch of No 1 PDS. Subcutaneous tissue with running stitches of 20 Chromic and skin was closed using harini. Patient tolerated the procedure well and was transferred to [facility] in good condition. Post-Procedure Post-procedure diagnosis Status post Findings: Live Baby in OT position Dark meconium staining amniotic fluid Estimated blood loss: other (5 or 600 cc) Specimen(s): no Grafts/Implants: no Complication(s): no Pt Condition post procedure: stable Disposition: PACU Physician Certification I, the undersigned physician, hereby certify that I have discussed the procedure described in this consent form with this patient (or the patient's legal advertising sales representative), including: * The risk and benefits of the procedure; * Any adverse reactions that may reasonably be expected to occur; * Any alternative efficacious methods of treatment which may be medically viable ; * The potential problems that may occur during recuperation; * Potential for blood transfusion and associated risks/benefits; and * Any research or economic interest I may have regarding this treatment. I further certify that the patient/legally responsible person was encouraged to ask question and that all questions were answered. KRISTY EMERSON MD Jan 19, 2017 14:14
[2017-01-19] MEDS ORDERED: morphine 2 MG INJ IV PRN (14:30)
[2017-01-19] MEDS ORDERED: morphine 4 MG/ML VIAL IV PRN (14:30)
[2017-01-19] MEDS ORDERED: KETOROLAC 30 MG INJ IV PRN (14:30)
[2017-01-19] MEDS ORDERED: ZOLPIDEM 5 MG TAB PO PRN (14:30)
[2017-01-19] MEDS ORDERED: ONDANSETRON 4 MG INJ IV PRN (14:30)
[2017-01-19] MEDS ORDERED: NALOXONE (0.4 MG/ML) INJ IV PRN (14:30)
[2017-01-19] MEDS ORDERED: DIPHENHYDRAMINE 50 MG INJ IV PRN (14:30)
[2017-01-19] MEDS ORDERED: GENTAMICIN 80 MG/NS (PMX) 50 ML IVPB SCH (16:00)
[2017-01-19] MEDS ORDERED: METHYLERGONOVINE 0.2 MG INJ IM PRN (17:30)
[2017-01-19] MEDS ORDERED: LANOLIN 7 GM TUBE TOP PRN (17:30)
[2017-01-19] MEDS ORDERED: OXYTOCIN 30 UNITS/LR 500 ML IV PRN (17:30)
[2017-01-19] MEDS ORDERED: NA PHOSPHATE/BIPHOS 133 ML ENEMA PR PRN (17:30)
[2017-01-19] MEDS ORDERED: MISOPROSTOL 200 MCG TAB PR PRN (17:30)
[2017-01-19] MEDS ORDERED: HYDROCODONE/APAP (5/325) TAB PO PRN (17:30)
[2017-01-19] MEDS ORDERED: CARBOPROST 250 MCG INJ IM PRN (17:30)
[2017-01-19] MEDS: GENTAMICIN 80 MG/NS (PMX) 50 ML IVPB SCH (18:19)
[2017-01-19] MEDS: AMPICILLIN 2 GM/NS (PMX) 100 ML IVPB SCH (19:00)
[2017-01-19] MEDS: CLINDAMYCIN 900 MG/D5W (PMX) 50 ML IVPB SCH (19:36)
[2017-01-19] MEDS ORDERED: LABETALOL 200 MG TAB PO SCH (21:00)
[2017-01-19] MEDS: SENNA/DOCUSATE NA (8.6MG/50MG) TAB PO SCH (21:00)
[2017-01-20] MEDS: AMPICILLIN 2 GM/NS (PMX) 100 ML IVPB SCH ×4 (00:11→18:35)
[2017-01-20] MEDS: CLINDAMYCIN 900 MG/D5W (PMX) 50 ML IVPB SCH ×4 (01:11→17:59)
[2017-01-20] MEDS: GENTAMICIN 80 MG/NS (PMX) 50 ML IVPB SCH ×3 (01:49→16:57)
[2017-01-20 04:00] VITALS: BP 119/79; PULSE 83; RESP 18
[2017-01-20 08:00] VITALS: BP 128/78; RESP 18
[2017-01-20] MEDS: SENNA/DOCUSATE NA (8.6MG/50MG) TAB PO SCH ×2 (09:00→21:01)
[2017-01-20] MEDS: LACTATED RINGER'S 1,000 ML IV SCH ×2 (09:23→17:23)
[2017-01-20] MEDS ORDERED: BISACODYL 10 MG SUPP PR ONE (09:30)
[2017-01-20 09:45] VITALS: BP 141/84; RESP 18
[2017-01-20] MEDS: LABETALOL 200 MG TAB PO SCH ×2 (09:58→21:02)
[2017-01-20] MEDS: IBUPROFEN 800 MG TAB PO SCH ×2 (15:36→22:22)
[2017-01-20 16:00] VITALS: BP 131/78; PULSE 96; RESP 18
--- NOTE | 2017-01-20 16:42 | PN ---
Date/Time of Note Date/Time of Note DATE: 01/20/17 TIME: 16:41 Assessment/Plan VTE Prophylaxis VTE Prophylaxis Intervention: ambulation Lines/Catheters IV Catheter Type (from Nrsg): Peripheral IV Assessment/Plan Assessment/Plan Status post postop day 1 Chronic hypertension on labetalol We will continue to advance diet and ambulate Monitor vital signs Subjective 24 Hr Interval Summary No bowel movement Passing flatus Constitutional: BM, ambulates, flatus, improved, no complaints, urine output Pain Control: well controlled Exam/Review of Systems Vital Signs Vitals Vital Signs Date Time Temp Pulse Resp B/P Pulse Ox O2 Delivery O2 Flow Rate FiO2 01/20/17 09:45 18 141/84 01/20/17 08:00 98.4 Room Air 01/20/17 04:00 83 01/16/17 10:46 96 Intake and Output 01/19/17 01/19/17 01/20/17 15:00 23:00 07:00 Intake Total 2450 ml 50 ml 250 ml Output Total 1195 ml Balance 2450 ml 50 ml -945 ml Exam Free Text/Dictation Abdomen is soft bowel sounds present and not distended Incision is covered Constitutional: alert, oriented, well developed Psych: nl mood/affect, no complaints Head: atraumatic, normocephalic Eyes: EOMI, nl conjunctiva, nl lids, nl sclera ENMT: mucosa pink and moist, nl external ears & nose, nl lips & teeth, nl nasal mucosa & septum Neck: non-tender, supple Respiratory: clear to auscultation, normal air movement Cardiovascular: nl pulses, regular rate and rhythm Gastrointestinal: nl liver, spleen, non-tender, soft Musculoskeletal: nl extremities to inspection, nl gait and stance Extremities: normal pulses Neurological: PHARMACY CLINICAL COORDINATOR II-XII intact, nl mental status, nl speech, nl strength Skin: nl turgor, rash or lesions Lymph: nl lymph nodes Results Result Diagram: 01/20/17 0949 01/19/17 1858 KRISTY EMERSON MD Jan 20, 2017 16:42
[2017-01-20 20:00] VITALS: BP 140/76; PULSE 89; RESP 18
[2017-01-21] MEDS: AMPICILLIN 2 GM/NS (PMX) 100 ML IVPB SCH ×4 (00:09→18:30)
[2017-01-21] MEDS: CLINDAMYCIN 900 MG/D5W (PMX) 50 ML IVPB SCH ×4 (00:54→18:00)
[2017-01-21] MEDS: LACTATED RINGER'S 1,000 ML IV SCH ×3 (01:23→17:23)
[2017-01-21] MEDS: GENTAMICIN 80 MG/NS (PMX) 50 ML IVPB SCH ×3 (01:46→17:30)
[2017-01-21 04:00] VITALS: BP 122/83; PULSE 76; RESP 18
[2017-01-21] MEDS: IBUPROFEN 800 MG TAB PO SCH ×3 (05:42→22:00)
[2017-01-21 08:30] VITALS: BP 124/66; PULSE 75; RESP 20
[2017-01-21] MEDS: LABETALOL 200 MG TAB PO SCH ×2 (08:49→21:00)
[2017-01-21] MEDS: SENNA/DOCUSATE NA (8.6MG/50MG) TAB PO SCH ×2 (08:49→21:00)
[2017-01-21] MEDS: OXYCODONE/ACETAMINOPHEN (5/325) TAB PO PRN (10:12)
--- NOTE | 2017-01-21 16:00 | PN ---
Date/Time of Note Date/Time of Note DATE: 01/21/17 TIME: 15:58 Assessment/Plan VTE Prophylaxis VTE Prophylaxis Intervention: ambulation Lines/Catheters IV Catheter Type (from Nrsg): Peripheral IV Assessment/Plan Assessment/Plan Status post postop day 2 Chronic hypertension under control Status post amnionitis on IV antibiotics We will repeat CBC because of elevated white count today Tinea to observe Anticipate discharge next Subjective 24 Hr Interval Summary Had bowel movement No major complaints Constitutional: BM, ambulates, flatus, improved, no complaints, urine output Pain Control: well controlled Exam/Review of Systems Vital Signs Vitals Vital Signs Date Time Temp Pulse Resp B/P Pulse Ox O2 Delivery O2 Flow Rate FiO2 01/21/17 04:00 98.4 76 18 122/83 Room Air Intake and Output 01/20/17 01/20/17 01/21/17 15:00 23:00 07:00 Output Total 1100 ml 600 ml Balance -1100 ml -600 ml Exam Free Text/Dictation Abdomen is soft bowel sounds present Incision is without induration or erythema Constitutional: alert, oriented, well developed Psych: nl mood/affect, no complaints Head: atraumatic, normocephalic Eyes: EOMI, nl conjunctiva, nl lids, nl sclera ENMT: mucosa pink and moist, nl external ears & nose, nl lips & teeth, nl nasal mucosa & septum Neck: non-tender, supple Respiratory: clear to auscultation, normal air movement Cardiovascular: nl pulses, regular rate and rhythm Gastrointestinal: nl liver, spleen, non-tender, soft Musculoskeletal: nl extremities to inspection, nl gait and stance Extremities: normal pulses Neurological: SHIPPING ORDER CLERK II-XII intact, nl mental status, nl speech, nl strength Skin: nl turgor, rash or lesions Lymph: nl lymph nodes Results Result Diagram: 01/21/17 0857 01/19/17 1858 KRISTY EMERSON MD Jan 21, 2017 16:00
[2017-01-21 16:30] VITALS: BP 134/80; PULSE 80; RESP 20
[2017-01-22] MEDS: AMPICILLIN 2 GM/NS (PMX) 100 ML IVPB SCH ×4 (00:03→18:00)
[2017-01-22] MEDS: CLINDAMYCIN 900 MG/D5W (PMX) 50 ML IVPB SCH ×4 (00:46→18:00)
[2017-01-22] MEDS: LACTATED RINGER'S 1,000 ML IV SCH ×3 (01:23→19:09)
[2017-01-22] MEDS: GENTAMICIN 80 MG/NS (PMX) 50 ML IVPB SCH ×3 (01:48→19:09)
[2017-01-22 04:00] VITALS: BP 102/72; PULSE 73
[2017-01-22] MEDS: IBUPROFEN 800 MG TAB PO SCH ×2 (05:27→13:40)
[2017-01-22 08:00] VITALS: BP 123/72; PULSE 79; RESP 18
[2017-01-22] MEDS ORDERED: MEASLES,MUMPS,RUBELLA VACCINE INJ SC* ONE (09:00)
[2017-01-22] MEDS ORDERED: DIPHTH/TET/ACEL PERTUSS (ADULT) 0.5 ML VIAL IM* ONE (09:00)
[2017-01-22] MEDS: LABETALOL 200 MG TAB PO SCH (09:47)
[2017-01-22] MEDS: SENNA/DOCUSATE NA (8.6MG/50MG) TAB PO SCH (09:47)
--- NOTE | 2017-01-22 15:41 | DS ---
Date/Time of Note Date/Time of Note DATE: 01/22/17 TIME: 15:39 Obstetrical Discharge Record Final Diagnosis Final Diagnosis: Term delivered Other Final Diagnosis S/P C/S Section Section: Primary Primary Indication arrest of dilatation and decent Complications Augmentation: Yes Induction: Yes Condition on Discharge Physical Assessment Last Vitals: see nurses notes Voiding: Yes Bowel Movement: Yes Breast: Soft, non-tender, Filling Fundus: Firm Abdomen and Incision: abdomen: soft BS + incision without induration and or erythema Episiotomy: N/A Calf Tenderness: No Patient Condition: Good KRISTY EMERSON MD Jan 22, 2017 15:41
--- NOTE | 2017-01-22 15:46 | DS ---
Date/Time of Note Date/Time of Note DATE: 01/22/17 TIME: 15:44 Discharge Summary Admission/Discharge Info Admit Date/Time Jan 16, 2017 at 10:19 Discharge Date/Time January 22, 2017 Discharge Diagnosis Status post Patient Condition: Good Procedures Primary delivery Hx of Present Illness 37-year-old female underwent primary section because of arrest of dilatation and descent Hospital Course Uncomplicated Home Meds Active Scripts Fluticasone Propionate (Flonase Allergy Relief) 9.9 Ml [place].susp, 1 SPRAY NASAL BID, #1 BOTTLE TO EACH NOSTRIL Prov:DOMONIQUE COLBY MD 12/09/16 Albuterol Sulfate* (Ventolin HFA*) 18 Gm Hfa.aer.ad, 2 PUFF INHALATION Q4H, #1 INHALER Prov:REYMUNDO CHANDRA 11/06/16 Reported Medications Vit No.126/Iron/FA (Classic Tablet) 1 Each Tablet, 1 EACH PO, TAB 11/06/16 Labetalol Hcl* (Labetalol Hcl*) 200 Mg Tablet, 200 MG PO BID, TAB 11/06/16 Ferrous Sulfate* (Ferrous Sulfate*) 325 Mg Tabec, 325 MG PO TID, TAB 11/06/16 Calcium Carbonate/Vitamin D3 (OYSTER SHELL CALCIUM TABLET) 1 Each Tablet, 1 EACH PO, TAB 11/06/16 Follow-up Plan To 3 days in clinic for staple removal Primary Care Provider Care Physician No Primary Time spent on discharge: > 30 minutes Pending Labs Laboratory Tests Test 01/22/17 10:35 White Blood Count 8.910^3/ul (4.8-10.8) Red Blood Count 2.6810^6/ul (4.20-5.40) Hemoglobin 8.3g/dl (12.0-16.0) Hematocrit 25.0% (37.0-47.0) Mean Corpuscular Volume 93.3fl (82.0-101.0) Mean Corpuscular Hemoglobin 31.0pg (29.0-33.0) Mean Corpuscular Hemoglobin Concent 33.2g/dl (32.0-37.0) Red Cell Distribution Width 14.3% (11.5-14.5) Platelet Count 92239^3/UL (140-415) Mean Platelet Volume 9.4fl (7.4-10.4) Neutrophils % 77.7% (39.0-77.0) Lymphocytes % 12.5% (15.0-51.0) Monocytes % 6.0% (0.0-11.0) Eosinophils % 1.7% (0.0-7.0) Basophils % 0.5% (0.0-2.0) Nucleated Red Blood Cells % 0.0/100WBC (0.0-0.0) Neutrophils # 6.910^3/ul (1.6-7.5) Lymphocytes # 1.110^3/ul (0.8-2.9) Monocytes # 0.510^3/ul (0.3-0.9) Eosinophils # 0.210^3/ul (0.0-0.5) Basophils # 0.010^3/ul (0.0-0.1) Nucleated Red Blood Cells # 0.010^3/ul (0.0-0.0) KRISTY EMERSON MD Jan 22, 2017 15:46
--- NOTE | 2017-01-22 15:47 | PD.PPDC ---
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
--- NOTE | 2017-01-22 15:47 | PD.PPDC ---
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
--- NOTE | 2017-01-22 15:47 | PD.PPDC ---
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
[2017-01-22] MEDS ORDERED: IBUP800T25 PO (15:48)
[2017-01-22 16:00] VITALS: BP 148/85; PULSE 80; RESP 16
[2017-01-22] MEDS: OXYCODONE/ACETAMINOPHEN (5/325) TAB PO PRN (17:12)
== END 2017-01-22 19:20 | disposition home or self-care (01) | DRG 765 ==
LOC: L-D 01-16 10:19 → PP1 01-19 17:40
PROVIDERS: ADMIT Obstetrics & Gynecology; ATTEND Obstetrics & Gynecology
PROC: 3E0P7VZ Introduction of Hormone into Female Reproductive, Via Natural or Artificial Opening (ICD-10-PCS; 2017-01-16)
PROC: 10D00Z1 Extraction of Products of Conception, Low, Open Approach (ICD-10-PCS; principal; 2017-01-19 13:30)
DX: O10.02 Pre-existing essential hypertension complicating childbirth (principal); O41.1030 Infection of amniotic sac and membranes, unspecified, third trimester, not applicable or unspecified; Z37.0 Single live birth; Z3A.38 38 weeks gestation of pregnancy; O62.0 Primary inadequate contractions
CPT/HCPCS: 62319; 76816; 80053; 81001; 84560; 85025; 85362; 85384; 85610; 85730; 86592; 86900; 86901; 87086; 90715; 99464; J0290; J0690; J1100; J1580; J2274; J2405; J2590; J3010; J7120